=== PATIENT | male | born 1975 | race Caucasian/White ===

== ENCOUNTER 2017-02-06 07:14 | Day surgery (SDC) | payer BC, OTHER ==
[~2017-02-06] VITALS: Ht 177.8 cm; Wt 115.7 kg
--- NOTE | ~2017-02-06 | S ---
[facility] [place] [address] SURGICAL PATH RPT PROCEDURE Name: MOISÉS HARTMAN Room #: [facility] [facility] M.R.#: [id number] Admission: 02/06/17 Date of : 73 Discharge: 02/06/17 Report #: [id number] Path Case #: [id number] PATHOLOGY REPORT COLLECTION DATE: 02/06/2017 RECEIVED DATE: 02/06/2017 SUBMITTING PHYS: Dr. Bong Juarez, OTHER PHYS: Dr. Jaime Ballesteros SPECIMEN(S) RECEIVED: A.Gallbladder * * * * * * * * * * * * FINAL DIAGNOSIS: "Gallbladder", cholecystectomy: - Chronic cholecystitis. (CLW:db; 02/07/2017) PATHOLOGIST: Vijaya Vital M.D. REPORT ELECTRONICALLY SIGNED BY: Vijaya Vital M.D. DATE/TIME: 02/07/2017 15:02 * * * * * * * * * * * * GROSS PATHOLOGY: Received in formalin labeled "Moisés Hartman gallbladder," is a 8.5 x 4.9 x 1.4 cm, previously opened gallbladder with bluegreenish, slightly wrinkled, vascular serosal surfaces. Opening the gallbladder reveals greenbrown, velvety mucosa and an average wall thickness of 0.2 cm. Calculi are not present and no masses are noted grossly. Raw Material Handler sections from the body and fundus are submitted along with the proximal margin in cassette A1. (TSD; 02/06/2017) CLINICAL HISTORY: Cholelithiasis INITIAL CPT CODE(S): A; 95170 Professional services performed by [facility] at [facility] [address], [place] [address] Technical services performed by [facility] at [address] [place] [id number]. [facility] [address] [place] [address] SURGICAL PATH RPT PROCEDURE Name: MOISÉS HARTMAN Room #: [facility] [facility] [place]#: [id number] Admission: 02/06/17 Date of : 73 Discharge: 02/06/17 Report #: [id number] Path Case #: [id number] [facility] [address] [address] PHONE: [phone] DIRECTOR: Lauri Morales M.D. * * * END OF REPORT * * *
[~2017-02-06 07:14] MED LIST: GLUCOPHAGE XR500 MG PO; LEVOTHYROXINE0.05 MG PO; PRILOSEC 20 MG20 MG PO; ROPINIROLE HCL3 MG PO
[2017-02-06 07:57] LABS: CALCIUM 9.6 mg/dL (8.5-10.1); CREATININE 1.5 mg/dL (0.7-1.3); POTASSIUM 4.3 mmol/L (3.5-5.1)
[2017-02-06 08:02] LABS: ALBUMIN 4.3 g/dL (3.4-5.0); TOTAL BILIRUBIN 0.5 mg/dL (<0.1-1.0); TOTAL PROTEIN 8.1 g/dL (6.4-8.2)
[2017-02-06 08:15] VITALS: BP 126/57
[2017-02-06] MEDS ORDERED: MIRALAX17 GM PO (10:38)
[2017-02-06] MEDS ORDERED: ZOFRAN ODT4 MG DISSOLVE (10:38)
[2017-02-06] MEDS ORDERED: HYDROCODONE-AP1 EAC6 PO (10:38)
[2017-02-06 13:00] VITALS: BP 119/70
[2017-02-06 15:02] VITALS: BP 119/70
== END 2017-02-06 16:37 | disposition home or self-care (01) ==
LOC: OR 07:14 → TBA 07:16 → OR 11:02 → 4W 12:14 → OR 14:44 → ENTRNSPT 15:40 → EDTRNSPTSTS 15:42 → OR 16:37
PROVIDERS: Surgery
DX: K80.10 Calculus of gallbladder with chronic cholecystitis without obstruction (principal); Z88.6 Allergy status to analgesic agent; Z79.899 Other long term (current) drug therapy; E11.9 Type 2 diabetes mellitus without complications; K21.9 Gastro-esophageal reflux disease without esophagitis; G47.30 Sleep apnea, unspecified; E03.8 Other specified hypothyroidism
CPT/HCPCS: 50010; 50101; 50249; 50411; 50555; 50558; 50962; 51489; 51975; 52265; 52266; 53307; 53310; 54022; 54118; 55245; 55317; 56462; 56525; 56526; 62110; 62900; 70005; 70110